=== PATIENT | male | born 1940 | race Caucasian/White ===

== ENCOUNTER → 2023-10-17 10:35 | Outpatient (REF) | payer MEDICARE, BC, SELFPAY | LOC: HWRAD 10:35 | PROVIDERS: ATTENDING PHYSICIAN Internal Medicine Cardiovascular Disease; FAMILY PHYSICIAN Family Medicine | DX: Z79.899 Other long term (current) drug therapy (principal) | CPT/HCPCS: 71046 ==

== ENCOUNTER → 2023-11-05 08:16 | Outpatient (REF) | payer MEDICARE, BC, SELFPAY | LOC: DHCBC/DCA 08:16 | PROVIDERS: ATTENDING PHYSICIAN Internal Medicine Cardiovascular Disease; FAMILY PHYSICIAN Family Medicine | DX: R07.89 Other chest pain (principal); I25.10 Atherosclerotic heart disease of native coronary artery without angina pectoris | CPT/HCPCS: 78452; 93017; A9500; J2785 ==

== ENCOUNTER 2024-02-06 13:19 | Emergency (ER) | payer MEDICARE, BC, SELFPAY ==
[2024-02-06 13:22] VITALS: BP 139/68
--- NOTE | 2024-02-06 13:48 | ED.GENMED ---
History of Present Illness
General
Chief Complaint: Weakness
Source: patient
Time Seen by Provider: 02/06/24 13:37
History of Present Illness
History of Present Illness:
83yoM with a history of coronary artery disease s/p CABG, COPD, hypertension, hyperlipidemia, and gout presenting for evaluation of malaise. Patient started to feel generally unwell about 3 days ago. He had a fever of 101 at that time. No further
fevers but he is having some chills. He also reports a dry cough. He got out of the shower this afternoon about 2 to 3 hours ago and he noticed that he had a rash to the left chest and flank. The rash is not itchy or painful although he does
report a mild pulling sensation in the left side of his chest. He is worried he may have COVID. He denies any shortness of breath.
Past History
Past History
ED Past Medical History: Asthma, CAD, Cancer (Prostate), HTN, Hypercholesterolemia, Psychiatric (Depression) and Other (Kidney stone, peptic ulcer disease, TIA, macular degeneration, glaucoma, BPH, urinary retention, UTIs, obstructive sleep apnea,
Hiatal hernia, Ulcers, Cellulitis, eczema)
ED Past Surgical History: Cardiac (CABG 2016) and Orthopedic (right ankle screws)
Social History
Tobacco: Non-smoker
Alcohol: None
Personal:
Living: alone
Employment: Retired
Family History
Family History: CAD
Phy Exam
General Physical Exam
General Presentation: well appearing and no apparent distress
General age: appears stated age
General Skin: warm and dry
General Habitus: normal
General Mental: alert
Cardiovascular Exam
Cardiovascular Exam: regular rate/rhythm
Pulmonary Exam
Pulmonary Exam: lungs clear, no respiratory distress, no crackles and no wheezing
Gastrointestinal Exam
Gastrointestinal Exam: non tender, soft and non distended
[place] Coma Scale
Eye Opening: Spontaneous
Verbal Response: Oriented
Motor Response: Obeys Commands
GCS Total Score: 15
Skin Exam
Skin Exam: warm/dry and other (Scattered vesicles with patches of erythema along the L side of the chest/flank in the T5 dermatome)
Psychiatric Exam
Psychiatric Exam: normal mood/affect
Course
Orders/Labs/Results
Orders:
Orders
02/06/24 13:28
Electrocardiogram (*1) Urgent
Reason for Study: Chest Pain
EKG- Treatment ONCE
02/06/24 13:48
CR Chest - 2 Views Urgent
Comment:
Reason For Exam: Cough
02/06/24 13:54
COVID-19 Antigen Urgent
Source: Nasal Swab
Complete Blood Count/With Diff Urgent
Comprehensive Metabolic Panel Urgent
Troponin I Urgent
Influenza A+B Rapid Molecular Urgent
MARIA DEL CARMEN Source: Nasal Swab
Specimen Description:
Abnormal Lab Results
02/06/24
13:54
Absolute Neuts (auto) 6.9 H 10^3/uL
(1.4-6.5)
Absolute Lymphs (auto) 0.9 L 10^3/uL
(1.2-3.4)
Neutrophils % 82.6 H %
(42.2-75.2)
Lymphocytes % 10.2 L %
(20.5-51.1)
Glucose 104 H mg/dl
(70-99)
Total Bilirubin 1.7 H mg/dl
(0.2-1.3)
02/06/24 13:54
02/06/24 13:54
Vital Signs
Initial and Last Documented VS:
Initial Vital Signs
Temp Pulse Resp BP Pulse Ox
98.1 F 91 18 139/68 97
02/06/24 13:22 02/06/24 13:22 02/06/24 13:22 02/06/24 13:22 02/06/24 13:22
Last Documented Vital Signs
Temp Pulse Resp BP Pulse Ox
98.1 F 83 17 139/68 93
02/06/24 13:22 02/06/24 15:45 02/06/24 15:45 02/06/24 13:22 02/06/24 15:30
MDM/Problems Addressed
Differential Diagnosis Includes:
83yoM here with malaise and fatigue x 3 days. +Chills. He noticed a rash to the L chest/flank this afternoon. He is afebrile and hemodynamically stable. He is well appearing in no distress. There is a vesicular erythematous rash along a dermatomal
pattern on exam consistent with herpes zoster. Remainder of exam is reassuring. Differential diagnosis includes but is not limited to: shingles, viral illness, pneumonia, ACS
Initial ED plan: Check cardiac labs, EKG, COVID/flu swab, and CXR.
*EKG
Interpreted by ED Provider?: Yes
EKG Intrepretation Date: 02/06/24
Heart Rate: 83
Rate: normal
Rhythm: sinus and PAC's
Mack: normal axis
Interval: normal interval
QRS Pattern: normal QRS
Ischemia: no ischemia
*Critical Care Note
Total Time (30-74mins, 75-104mins- exclusive of procedures): Not Applicable
Update Note
Update Note:
Labs overall unremarkable other than bilirubin of 1.7. Remainder of LFTs are normal. COVID/flu testing negative. EKG shows normal sinus rhythm without ischemic changes and troponin within normal limits. Chest x-ray clear without infiltrates. No
indication for hospitalization at this time. Suspect symptoms are related to herpes zoster infection. He was started on a course of Valtrex. Supportive care discussed including keeping rash covered until completely scabbed over. Advised
follow-up with PCP and ED return precautions discussed. Patient expressed understanding and is agreeable to plan. He was discharged stable condition.
ED Attending Note
-
Portions of this chart may have been created with voice recognition software.� Occasional wrong word or��sound alike� substitutions may have occurred due to the inherent limitations of voice recognition software.
Discharge Plan
Departure
Patient Disposition: Home (Routine Discharge)
Date of Disposition: 02/06/24
Time of Disposition: 15:45
Patient with high blood pressure during this ER visit?: No
Discharge Problem:
Herpes zoster
Instructions: Shingles
Prescriptions:
New
valacyclovir [Valtrex] 1 gram tablet
1,000 mg PO Q8H 10 Days Qty: 30 0RF
No Action
allopurinol 300 MG tablet
300 mg PO DAILY
amiodarone [Pacerone] 200 MG tablet
200 mg PO DAILY
albuterol sulfate 1 PUFF HFA aerosol inhaler
2 puff inhalation R Q4HPRN PRN (Reason: sob)
Fasenra 30 MG/ML syringe
30 mg SC .[id number]
terazosin 1 MG capsule
4 mg PO HS
amlodipine 10 MG tablet
10 mg PO DAILY
gabapentin 300 MG capsule
300 mg PO BID
montelukast 10 MG tablet
10 mg PO QPM
fluticasone propionate 1 SPRAY spray,suspension
1 spray intranasal DAILYPRN PRN (Reason: nasal congestion)
rosuvastatin [Crestor] 40 MG tablet
40 mg PO DAILY
esomeprazole magnesium [address] for susp in packet
40 mg PO DAILY
aspirin 81 MG tablet,chewable
81 mg PO DAILY
furosemide 20 MG tablet
20 mg PO DAILY
gabapentin 100 MG capsule
200 mg PO DAILY@1400
loratadine 10 MG tablet
10 mg PO DAILY
ezetimibe 10 MG tablet
10 mg PO DAILY
multivitamin with folic acid [Tab-A-Lorraine] 1 TABLET tablet
1 tab PO DAILY
fluticasone propion-salmeterol [Wixela Inhub] 250-50 mcg/dose blister with device
1 inh INHALATION BID
Activity Restrictions/Additional Instructions:
Take Valtrex (antiviral) as prescribed. Keep rash covered until completely scabbed over.
Please follow-up with your family doctor next week. Return to the ER with any new or worsening symptoms.
Interventions
Interventions:
*Risk Screen - Suicide Last Done: 02/06/24 13:21
*General Assessment Last Done: 02/06/24 13:22
*Neglect/Abuse Screening Last Done: 02/06/24 13:22
ED- Fall Risk Assessment Last Done: 02/06/24 13:52
*ED COVID-19 Vaccine History Last Done: 02/06/24 13:51
*Nursing Disposition Last Done: 02/06/24 16:01
ED- Cardiac Assessment Last Done: 02/06/24 14:14
ED- Neurological Assessment Last Done: 02/06/24 14:14
ED- Pulmonary Assessment Last Done: 02/06/24 14:14
Discharge Date and Time
Discharge Date/Time: 02/06/24 16:01
Print Language: HONG KONGER
[2024-02-06 13:51] VITALS: BMI 28.5
[2024-02-06 14:07] LABS: % Immature Granulocytes 0.4 % (0-0.5); % Lymphocytes 10.2 % (20.5-51.1); % Monocytes 6.8 % (1.7-9.3); % Neutrophils 82.6 % (42.2-75.2); Absolute Lymphocytes 0.9 10^3/uL (1.2-3.4); Absolute Monocytes 0.6 10^3/uL (0.1-0.6); Absolute Neutrophils 6.9 10^3/uL (1.4-6.5); Hematocrit 41.3 % (39.0-52.0); Hemoglobin 14.3 g/dL (13.0-18.0); Mean Corp Hgb Conc. 34.6 g/dL (33.0-37.0); Mean Corpuscular Hgb 30.4 pg (27.0-31.0); Mean Corpuscular Volume 87.7 fL (80.0-94.0); Nucleated Red Blood Cells % 0 % (-); Platelet Count 187 10^3/uL (130-400); Red Blood Cell Count 4.71 10^6/uL (4.70-6.10); Red Cell Dist. Width 14.1 % (11.5-14.5); White Blood Cell Count 8.4 10^3/uL (4.8-10.8)
[2024-02-06 14:20] LABS: COVID-19 Antigen Negative (Negative)
[2024-02-06 14:24] LABS: ALT (SGPT) 42 U/L (0-50); AST (SGOT) 56 U/L (17-59); Albumin 3.9 g/dl (3.5-5.0); Alkaline Phosphatase 110 U/L (38-126); Blood Urea Nitrogen 17 mg/dl (9-20); Calcium 9.5 mg/dl (8.4-10.2); Carbon Dioxide 23 mmol/L (22-30); Chloride 101 mmol/L (98-107); Estimated Creatinine Clearance 52 ml/min; Glucose 104 mg/dl (70-99); Potassium 3.8 mmol/L (3.5-5.1); Sodium 136 mmol/L (135-145); Total Bilirubin 1.7 mg/dl (0.2-1.3); Total Protein 6.4 g/dl (6.3-8.2); eGFR > 60.00
[2024-02-06 14:36] LABS: Troponin I < 0.012 ng/ml
== END 2024-02-06 16:01 | disposition home or self-care (01) ==
LOC: EMR 13:19
PROVIDERS: Physician Assistant; EMERGENCY PHYSICIAN Emergency Medicine; FAMILY PHYSICIAN Family Medicine
DX: R53.81 Other malaise (principal); I25.10 Atherosclerotic heart disease of native coronary artery without angina pectoris; J44.89 Other specified chronic obstructive pulmonary disease; I10 Essential (primary) hypertension; E78.00 Pure hypercholesterolemia, unspecified; G47.33 Obstructive sleep apnea (adult) (pediatric); B02.9 Zoster without complications; Z82.49 Family history of ischemic heart disease and other diseases of the circulatory system; Z86.73 Personal history of transient ischemic attack (TIA), and cerebral infarction without residual deficits; Z87.11 Personal history of peptic ulcer disease; Z87.440 Personal history of urinary (tract) infections; Z87.442 Personal history of urinary calculi; Z95.1 Presence of aortocoronary bypass graft
CPT/HCPCS: 99283; 71046; 80053; 84484; 85025; 87502; 87811; 93005

== ENCOUNTER → 2024-05-05 10:23 | Outpatient (REF) | payer MEDICARE, BC, SELFPAY | LOC: HWRCS 10:23 | PROVIDERS: ATTENDING PHYSICIAN Internal Medicine Cardiovascular Disease; FAMILY PHYSICIAN Family Medicine | DX: I25.10 Atherosclerotic heart disease of native coronary artery without angina pectoris (principal) | CPT/HCPCS: 93306 ==

== ENCOUNTER → 2024-05-18 08:47 | Day surgery (SDC) | payer MEDICARE, BC, SELFPAY ==
[2024-05-18 11:30] LABS: Hematocrit 39.9 % (39.0-52.0); Hemoglobin 12.7 g/dL (13.0-18.0); Mean Corp Hgb Conc. 31.8 g/dL (33.0-37.0); Mean Corpuscular Hgb 29.8 pg (27.0-31.0); Mean Corpuscular Volume 93.7 fL (80.0-94.0); Mean Platelet Volume 8.6 fL (7.4-10.4); Platelet Count 308 10^3/uL (130-400); Red Blood Cell Count 4.26 10^6/uL (4.70-6.10); Red Cell Dist. Width 14.7 % (11.5-14.5); White Blood Cell Count 13.1 10^3/uL (4.8-10.8)
[2024-05-18 11:51] LABS: Blood Urea Nitrogen 21 mg/dl (9-20); Calcium 9.2 mg/dl (8.4-10.2); Carbon Dioxide 28 mmol/L (22-30); Chloride 101 mmol/L (98-107); Glucose 77 mg/dl (70-99); Potassium 3.1 mmol/L (3.5-5.1); Sodium 137 mmol/L (135-145); eGFR > 60.00
== END ==
LOC: SDSPAT 08:47
PROVIDERS: ATTENDING PHYSICIAN Specialist; FAMILY PHYSICIAN Family Medicine; OTHER PHYSICIAN Internal Medicine Cardiovascular Disease
DX: Z01.812 Encounter for preprocedural laboratory examination (principal)
CPT/HCPCS: 85027; 36415; 80048

== ENCOUNTER 2024-06-01 06:23 | Day surgery (SDC) | payer MEDICARE, BC, SELFPAY ==
[2024-05-18 11:02] VITALS: BMI 28.8
--- NOTE | 2024-05-24 13:38 | PTCARENOTE ---
Chaka+ 3.1 collected on 05/18/24; Haydee at ' office was notified.
--- NOTE | 2024-05-27 16:50 | PTCARENOTE ---
[facility] lab K+ 3.1, Dr. Ferreira notified, no requests/orders received.
[2024-06-01 10:33] VITALS: BMI 28.8
[2024-06-01 10:35] VITALS: BP 131/57
[2024-06-01] MEDS: NORMOSOL-R/PLASMALYTE-A 1000 IV (10:51)
[2024-06-01] MEDS: Pyridium 200 MG PO (10:51)
[2024-06-01 12:29] VITALS: BP 116/52; BP 131/57
[2024-06-01 12:45] VITALS: BP 104/52
[2024-06-01 13:00] VITALS: BP 109/50
[2024-06-01 13:26] VITALS: BP 108/52
[2024-06-01 13:42] VITALS: BP 111/50
[2024-06-03 08:26] LABS: Stone Analysis Mass 16 mg
== END 2024-06-01 14:00 | disposition home or self-care (01) ==
LOC: SDS 06:23
PROVIDERS: ATTENDING PHYSICIAN Specialist; FAMILY PHYSICIAN Family Medicine
DX: N20.2 Calculus of kidney with calculus of ureter (principal); Z87.440 Personal history of urinary (tract) infections
CPT/HCPCS: 52356; 74018; 76000; 82365; C1894; C2617

== ENCOUNTER → 2024-07-20 14:09 | Outpatient (REF) | payer MEDICARE, BC, SELFPAY | LOC: HWRAD 14:09 | PROVIDERS: ATTENDING PHYSICIAN Specialist; FAMILY PHYSICIAN Family Medicine | DX: Z87.442 Personal history of urinary calculi (principal) | CPT/HCPCS: 74018 ==

== ENCOUNTER → 2024-09-06 12:26 | Outpatient (REF) | payer MEDICARE, BC, SELFPAY | LOC: WOUND 12:26 | PROVIDERS: ATTENDING PHYSICIAN Surgery | DX: L97.322 Non-pressure chronic ulcer of left ankle with fat layer exposed (principal); I25.10 Atherosclerotic heart disease of native coronary artery without angina pectoris | CPT/HCPCS: 11042; 99203 ==

== ENCOUNTER → 2024-09-14 10:04 | Outpatient (REF) | payer MEDICARE, BC, SELFPAY | LOC: WOUND 10:04 | PROVIDERS: ATTENDING PHYSICIAN Surgery | DX: L97.222 Non-pressure chronic ulcer of left calf with fat layer exposed (principal); I25.10 Atherosclerotic heart disease of native coronary artery without angina pectoris | CPT/HCPCS: 11042 ==

== ENCOUNTER → 2024-09-21 09:11 | Outpatient (REF) | payer MEDICARE, BC, SELFPAY | LOC: WOUND 09:11 | PROVIDERS: ATTENDING PHYSICIAN Surgery; FAMILY PHYSICIAN Family Medicine | DX: L97.222 Non-pressure chronic ulcer of left calf with fat layer exposed (principal); I25.10 Atherosclerotic heart disease of native coronary artery without angina pectoris | CPT/HCPCS: 11042 ==

== ENCOUNTER → 2024-10-01 09:08 | Outpatient (REF) | payer MEDICARE, BC, SELFPAY | LOC: WOUND 09:08 | PROVIDERS: ATTENDING PHYSICIAN Surgery; FAMILY PHYSICIAN Family Medicine | DX: L97.222 Non-pressure chronic ulcer of left calf with fat layer exposed (principal); I25.10 Atherosclerotic heart disease of native coronary artery without angina pectoris | CPT/HCPCS: 97597 ==

== ENCOUNTER → 2024-10-08 09:10 | Outpatient (REF) | payer MEDICARE, BC, SELFPAY | LOC: WOUND 09:10 | PROVIDERS: ATTENDING PHYSICIAN Surgery; FAMILY PHYSICIAN Family Medicine | DX: L97.222 Non-pressure chronic ulcer of left calf with fat layer exposed (principal); I25.10 Atherosclerotic heart disease of native coronary artery without angina pectoris | CPT/HCPCS: 11042 ==

== ENCOUNTER → 2024-10-21 09:48 | Outpatient (REF) | payer MEDICARE, BC, SELFPAY | LOC: WOUND 09:48 | PROVIDERS: ATTENDING PHYSICIAN Surgery; FAMILY PHYSICIAN Family Medicine | DX: L97.222 Non-pressure chronic ulcer of left calf with fat layer exposed (principal); I25.10 Atherosclerotic heart disease of native coronary artery without angina pectoris | CPT/HCPCS: 99212 ==

== ENCOUNTER 2024-11-04 17:36 | Emergency (ER) | payer MEDICARE, BC, SELFPAY ==
[2024-11-04] VITALS (7 sets, daily range): BP systolic 119–138; BP diastolic 65–80; BMI 28.3
--- NOTE | 2024-11-04 18:18 | ED.GENMED ---
History of Present Illness
General
Chief Complaint: Blood Pressure Problem
Time Seen by Provider: 11/04/24 18:15
History of Present Illness
History of Present Illness:
84-year-old male presents the emergency department for evaluation of intermittent chest pain that has been ongoing for the past month. He reports symptoms are purely provoked by exertion in association with mild shortness of breath. He has no pain
at present. States that he typically has symptom resolution within 20 minutes of resting. Prior history of CABG x 3 but notes that he had no angina symptoms leading up to his CABG
Past History
Past History
ED Past Medical History: Asthma, CAD, Cancer (Prostate), HTN, Hypercholesterolemia, Psychiatric (Depression) and Other (Kidney stone, peptic ulcer disease, TIA, macular degeneration, glaucoma, BPH, urinary retention, UTIs, obstructive sleep apnea,
Hiatal hernia, Ulcers, Cellulitis, eczema)
ED Past Surgical History: Cardiac (CABG 2016) and Orthopedic (right ankle screws)
Social History
Tobacco: Non-smoker
Alcohol: None
Personal:
Living: alone
Employment: Retired
Family History
Family History: CAD
Review of Systems
Review of Systems
Allergies reviewed?: Yes
All Other Systems: ROS reviewed and negative except as documented in HPI and ROS
Phy Exam
Physical Exam
Physical Exam:
GEN: Well appearing, NAD, WDWN
HEENT: Oral mucosa moist, no scleral icterus
Cardiac: Regular rate and rhythm blowing systolic murmur heard throughout
Lung: No respiratory distress, no tachypnea, clear
MSK: No gross deformity or injuries
Skin: Good color, no pallor or jaundice, no rashes
Neuro: AO x3, moves all extremities freely
Psych: Calm, cooperative
Scores
Heart Score for Chest Pain Patients
STEMI patient?: No
History: Highly Suspicious
ECG: Normal
Age: >/= 65 years
Risk Factors: >/= 3 Risk Factors or History of CAD
Troponin: </= Normal Limit
Heart Score for Chest Pain Patients: 6
Heart Score Risk: 20.3% MACE over next 6 weeks
Course
Orders/Labs/Results
Orders:
Orders
11/04/24 17:42
ECG [Electrocardiogram (*1)] Urgent
Reason for Study: Chest Pain
11/04/24 17:43
EKG- Treatment ONCE
11/04/24 18:51
CR Chest - 2 Views Urgent
Comment:
Reason For Exam: chest pain
11/04/24 18:56
Complete Blood Count/With Diff Urgent
Comprehensive Metabolic Panel Urgent
NT-proBNP Urgent
Troponin I Urgent
11/04/24 20:39
EKG- Treatment ONCE
11/04/24 20:53
Troponin I Urgent
11/04/24 21:00
Electrocardiogram (*1) Urgent
Reason for Study: Chest Pain
Abnormal Lab Results
11/04/24
18:56
RBC 4.47 L 10^6/uL
(4.70-6.10)
Absolute Neuts (auto) 8.0 H 10^3/uL
(1.4-6.5)
Absolute Lymphs (auto) 1.1 L 10^3/uL
(1.2-3.4)
Absolute Monos (auto) 0.9 H 10^3/uL
(0.1-0.6)
Neutrophils % 79.3 H %
(42.2-75.2)
Lymphocytes % 11.2 L %
(20.5-51.1)
Total Bilirubin 1.6 H mg/dl
(0.2-1.3)
11/04/24 18:56
11/04/24 18:56
Vital Signs
Initial and Last Documented VS:
Initial Vital Signs
Temp Pulse Resp BP Pulse Ox
98.8 F 78 18 119/66 96
11/04/24 17:37 11/04/24 17:37 11/04/24 17:37 11/04/24 17:37 11/04/24 17:37
Last Documented Vital Signs
Temp Pulse Resp BP Pulse Ox
98.8 F 71 18 134/80 95
11/04/24 17:37 11/04/24 22:00 11/04/24 22:00 11/04/24 22:00 11/04/24 22:00
MDM/Problems Addressed
MDM/Problems Addressed:
84-year-old male with prior history of CABG presenting with exertional chest pain, no pain at rest. His initial EKG is nonischemic initial troponin is nonnegative thus he was observed in the ED with delta troponin downtrending. He remained
pain-free in the ED. Given his significant cardiovascular risk and prior history I did advise that admission to the hospital for further ischemic workup would be recommended however the patient declines at this time I communicated this with his
lubricator granulator who will arrange for close outpatient follow-up
Comment
Comment:
EKG independently interpreted by me shows a normal sinus rhythm with no ischemic changes
*Pulse Oximetry
Patient hypoxic: no
Comment: 95%
*Critical Care Note
Total Time (30-74mins, 75-104mins- exclusive of procedures): Not Applicable
ED Attending Note
-
Portions of this chart may have been created with voice recognition software.� Occasional wrong word or��sound alike� substitutions may have occurred due to the inherent limitations of voice recognition software.
Discharge Plan
Departure
Patient Disposition: Home (Routine Discharge)
Date of Disposition: 11/04/24
Time of Disposition: 21:47
Patient with high blood pressure during this ER visit?: No
Discharge Problem:
Stable angina
Instructions: Chest Pain DCA Follow Up
Prescriptions:
No Action
allopurinol 300 MG tablet
300 mg PO DAILY
amiodarone [Pacerone] 200 MG tablet
200 mg PO DAILY
albuterol sulfate 1 PUFF HFA aerosol inhaler
2 puff inhalation R Q4HPRN PRN (Reason: sob)
Fasenra 30 MG/ML syringe
30 mg SC .[id number]
amlodipine 10 MG tablet
10 mg PO DAILY
gabapentin 300 MG capsule
300 mg PO BID
montelukast 10 MG tablet
10 mg PO QPM
rosuvastatin [Crestor] 40 MG tablet
40 mg PO HS
esomeprazole magnesium [address] for susp in packet
40 mg PO DAILY
furosemide 20 MG tablet
20 mg PO DAILY
loratadine 10 MG tablet
10 mg PO DAILY
ezetimibe 10 MG tablet
10 mg PO HS
multivitamin with folic acid [Tab-A-Lorraine] 1 TABLET tablet
1 tab PO DAILY
prednisone 10 mg Tablet
10 mg PO DAILY
terazosin 2 mg Capsule
2 mg PO HS
cefdinir 300 mg Capsule
300 mg PO Q12H
fluticasone propionate 50 mcg/actuation [place],Suspension
1 spray INTRANASAL BID
Fish Oil 500 mg Capsule
500 mg PO HS
azelastine-fluticasone 137-50 mcg/spray [place],Non-Aerosol
1 spray INTRANASAL BID
potassium chloride [K-Tab] 20 mEq Tablet Extended Release
20 meq PO DAILY
Probiotic
1 cap PO DAILY
cranberry 300 mg capsule
1 cap PO HS
acetaminophen [Tylenol Arthritis] 650 mg Tablet Extended Release
1,300 mg PO Q12H
fluticasone propion-salmeterol [Advair Diskus] 500-50 mcg/dose Blister With Device
2 inh INHALATION BID
Referrals:
Stepan Dunbar DO [Family Provider, Family Practice]
Interventions
Interventions:
*Risk Screen - Suicide Last Done: 11/04/24 17:37
*General Assessment Last Done: 11/04/24 17:37
*Neglect/Abuse Screening Last Done: 11/04/24 18:42
*ED- Fall Risk Assessment Last Done: 11/04/24 18:41
*ED COVID-19 Vaccine History Last Done: 11/04/24 18:41
*Nursing Disposition Last Done: 11/04/24 22:00
ED- Cardiac Assessment Last Done: 11/04/24 19:09
ED- Neurological Assessment Last Done: 11/04/24 18:46
ED- Pulmonary Assessment Last Done: 11/04/24 19:09
Discharge Date and Time
Discharge Date/Time: 11/04/24 22:07
Print Language: MICRONESIAN
[2024-11-04 19:12] LABS: % Basophils 0.1 % (0-2); % Immature Granulocytes 0.2 % (0-0.5); % Lymphocytes 11.2 % (20.5-51.1); % Monocytes 9.2 % (1.7-9.3); % Neutrophils 79.3 % (42.2-75.2); Absolute Lymphocytes 1.1 10^3/uL (1.2-3.4); Absolute Monocytes 0.9 10^3/uL (0.1-0.6); Hematocrit 39.9 % (39.0-52.0); Hemoglobin 13.7 g/dL (13.0-18.0); Mean Corp Hgb Conc. 34.3 g/dL (33.0-37.0); Mean Corpuscular Hgb 30.6 pg (27.0-31.0); Mean Corpuscular Volume 89.3 fL (80.0-94.0); Mean Platelet Volume 8.6 fL (7.4-10.4); Nucleated Red Blood Cells % 0 % (-); Platelet Count 241 10^3/uL (130-400); Red Blood Cell Count 4.47 10^6/uL (4.70-6.10); Red Cell Dist. Width 14.3 % (11.5-14.5); White Blood Cell Count 10.1 10^3/uL (4.8-10.8)
[2024-11-04 19:33] LABS: ALT (SGPT) 25 U/L (0-50); AST (SGOT) 32 U/L (17-59); Albumin 4.4 g/dl (3.5-5.0); Alkaline Phosphatase 104 U/L (38-126); Blood Urea Nitrogen 19 mg/dl (9-20); Calcium 9.8 mg/dl (8.4-10.2); Carbon Dioxide 24 mmol/L (22-30); Chloride 107 mmol/L (98-107); Estimated Creatinine Clearance 43 ml/min; Glucose 92 mg/dl (70-99); Potassium 4.4 mmol/L (3.5-5.1); Sodium 140 mmol/L (135-145); Total Bilirubin 1.6 mg/dl (0.2-1.3); Total Protein 6.7 g/dl (6.3-8.2); eGFR > 60.00
[2024-11-04 19:51] LABS: NT-proBNP 131 pg/ml; Troponin I 0.023 ng/ml
[2024-11-04 21:38] LABS: Troponin I 0.013 ng/ml
== END 2024-11-04 22:07 | disposition home or self-care (01) ==
LOC: EMR 17:36
PROVIDERS: Physician Assistant; EMERGENCY PHYSICIAN Student in an Organized Health Care Education/Training Program; FAMILY PHYSICIAN Family Medicine
DX: I25.118 Atherosclerotic heart disease of native coronary artery with other forms of angina pectoris (principal); I11.9 Hypertensive heart disease without heart failure
CPT/HCPCS: 99285; 71046; 80053; 83880; 84484; 85025; 93005

== ENCOUNTER 2025-03-29 10:32 | Emergency (ER) | payer MEDICARE, BC, SELFPAY ==
[2025-03-29 10:38] VITALS: BP 136/55
--- NOTE | 2025-03-29 11:25 | ED.MUSCINJ ---
HPI-Injury
General
Chief Complaint: Fall
Source: patient
Exam Limitations: none
Time Seen by Provider: 03/29/25 11:25
Nursing documentation reviewed up to this point in time: agreed with
History of Present Illness-Injury
Initial Injury comments:
84-year-old male with history of HTN, HLD, CABG, GERD, BPH, sternectomy after infection post op CABG, chest wall muscle flap repair 05/2016, presents from home after missed a step and tripped and fell in his driveway yesterday landing on all fours,
here with pain and scrapes both knees, pain, swelling and ecchymosis left hand and wrist, abrasion and mild pain right wrist, and right chest wall pain. He was able to get up independently but since the fall, both knees hurt and couldn't go up
stairs last p.m. due to knee pain so slept on sofa. Denies neck, back, abd pain. Denies SOB. Denies hitting his head.
Past History
Past History
ED Past Medical History: Asthma, CAD, Cancer (Prostate), HTN, Hypercholesterolemia, Psychiatric (Depression) and Other (Kidney stone, peptic ulcer disease, TIA, macular degeneration, glaucoma, BPH, urinary retention, UTIs, obstructive sleep apnea,
Hiatal hernia, Ulcers, Cellulitis, eczema)
ED Past Surgical History: Cardiac (CABG 2016) and Orthopedic (right ankle screws)
Social History
Tobacco: Non-smoker
Alcohol: None
Personal:
Living: alone
Employment: Retired
Family History
Family History: CAD
Review of Systems
Review of Systems
Allergies reviewed?: Yes
All Other Systems: ROS reviewed and negative except as documented in HPI and ROS
Phy Exam
Physical Exam
Physical Exam:
GENERAL: No acute distress. A&Ox3.
CONSTITUTIONAL: Afebrile.
EYES: clear, conjunctivae normal
ENMT: moist mucus membranes, Pharynx nl
RESPIRATORY: Regular respirations, nonlabored, lungs clear.
CARDIOVASCULAR: Regular rate and rhythm, no murmurs, no rubs.
GI: Soft, nontender, normal BS
MUSCULOSKELETAL: No spinal bony tenderness. Right upper chest wall pectoral area tender to palpate, no discoloration or swelling here. Right upper extremity with mild tenderness about the wrist at the site of an abrasion, full range of motion,
distal neurovascular intact. Left upper extremity: Ecchymotic, mildly swollen from wrist to mid fingers, mainly tender along the lateral aspect of the hand. Wrist is nontender with full range of motion. Distal neurovascular intact. Full range of
motion of fingers. Both knees are tender to palpate, no significant swelling, multiple superficial clean abrasions and ecchymotic areas. Full range of motion. Distal neurovascular intact. Moves with ease. Well perfused.
SKIN: Warm, dry, pink
PSYCH: Normal mood and affect. Well kept, interactive and appropriate
NEUROLOGIC: Awake, alert and oriented. No focal neurological deficits
Injury Course
Orders/Labs/Results
Orders:
Orders
03/29/25 10:44
CR Hand - Right Min 3 Views Urgent
Comment:
Reason For Exam: fall
CR Knee- Right 4 Or More View* Urgent
Comment:
Reason For Exam: fall
Hand, Left 3 View [CR Hand - Left Min 3 Views] Urgent
Comment:
Reason For Exam: fall
Knee, Left 4 or More Views [CR Knee - Left 4 Or More View*] Urgent
Comment:
Reason For Exam: fall
Ribs, Right 3 View W/PA Chest [CR Ribs-right 3 Vw W/pa Chest*] Urgent
Comment:
Reason For Exam: fall
MDM/Problems Addressed
Differential Diagnosis Includes:
Contusions versus fractures
MDM/Problems Addressed:
84-year-old male with history of HTN, HLD, CABG, GERD, BPH, sternectomy after infection post op CABG, chest wall muscle flap repair 05/2016, not anticoagulated, presents from home after missed a step and tripped and fell in his driveway yesterday
landing on all fours, here with pain and scrapes both knees, pain, swelling and ecchymosis left hand and wrist, abrasion and mild pain right wrist, and right chest wall pain. He was able to get up independently but since the fall, both knees hurt
and couldn't go up stairs last p.m. due to knee pain so slept on sofa. Denies neck, back, abd pain. Denies SOB. Denies hitting his head.
X-rays both hands initially read by this examiner: No acute bony abnormality noted.
X-ray of both knees initially read by this examiner, no acute bony abnormality noted.
X-ray of right ribs with chest radiology report reviewed: No evidence for acute right rib fracture no evidence for pneumothorax or pleural effusion.
Patient out of bed and ambulating well, stable for discharge.
*Pulse Oximetry
SaO2: 94
Oxygen Mode of Delivery: Room air
Patient hypoxic: not evaluated
*Critical Care Note
Total Time (30-74mins, 75-104mins- exclusive of procedures): Not Applicable
ED Attending Note
-
Portions of this chart may have been created with voice recognition software.� Occasional wrong word or��sound alike� substitutions may have occurred due to the inherent limitations of voice recognition software.
Discharge Plan
Departure
Patient Disposition: Home (Routine Discharge)
Date of Disposition: 03/29/25
Time of Disposition: 11:48
Patient with high blood pressure during this ER visit?: No
Condition: Good
Discharge Problem:
Fall from slip, trip, or stumble, Contusion of left hand, Multiple abrasions, Muscle strain of chest wall, Contusion both knees
Instructions: Contusion (DC), Skin Abrasions (DC), Muscle, joint, and bone pain (DC)
Prescriptions:
No Action
allopurinol 300 MG tablet
300 mg PO DAILY
amiodarone [Pacerone] 200 MG tablet
200 mg PO DAILY
albuterol sulfate 1 PUFF HFA aerosol inhaler
2 puff inhalation R Q4HPRN PRN (Reason: sob)
Fasenra 30 MG/ML syringe
30 mg SC .[id number]
amlodipine 10 MG tablet
10 mg PO DAILY
gabapentin 300 MG capsule
300 mg PO BID
montelukast 10 MG tablet
10 mg PO QPM
rosuvastatin [Crestor] 40 MG tablet
40 mg PO HS
esomeprazole magnesium [address] for susp in packet
40 mg PO DAILY
furosemide 20 MG tablet
20 mg PO DAILY
loratadine 10 MG tablet
10 mg PO DAILY
ezetimibe 10 MG tablet
10 mg PO HS
multivitamin with folic acid [Tab-A-Lorraine] 1 TABLET tablet
1 tab PO DAILY
prednisone 10 mg Tablet
10 mg PO DAILY
terazosin 2 mg Capsule
2 mg PO HS
cefdinir 300 mg Capsule
300 mg PO Q12H
fluticasone propionate 50 mcg/actuation [place],Suspension
1 spray INTRANASAL BID
Fish Oil 500 mg Capsule
500 mg PO HS
azelastine-fluticasone 137-50 mcg/spray [place],Non-Aerosol
1 spray INTRANASAL BID
potassium chloride [K-Tab] 20 mEq Tablet Extended Release
20 meq PO DAILY
Probiotic
1 cap PO DAILY
cranberry 300 mg capsule
1 cap PO HS
acetaminophen [Tylenol Arthritis] 650 mg Tablet Extended Release
1,300 mg PO Q12H
fluticasone propion-salmeterol [Advair Diskus] 500-50 mcg/dose Blister With Device
2 inh INHALATION BID
Referrals:
Justo Powell MD [Active, Orthopedics] - As needed
Stepan Dunbar DO [Family Provider, Family Practice] - As needed
Jacob Koenig MD [Active, Orthopedics] - As needed
Activity Restrictions/Additional Instructions:
As we discussed, your x-rays show nothing is broken or out of place.
Tylenol as needed for mild to moderate pain and you can use your oxycodone if needed for worse pain.
It is not unusual to be more stiff and sore for the 3 days after a fall or an accident.
You may use cold compresses today and tomorrow to the knees, the left wrist and to the right chest wall for 20 minutes off-and-on, then warm moist compresses or heating pad.
Interventions
Interventions:
*Risk Screen - Suicide Last Done: 03/29/25 10:38
*Neglect/Abuse Screening Last Done: 03/29/25 10:38
*Nursing Disposition Last Done: 03/29/25 12:02
ED-Musculoskeletal Assessment Last Done: 03/29/25 11:28
ED- Neurological Assessment Last Done: 03/29/25 11:28
ED-Skin Assessment Last Done: 03/29/25 11:28
Discharge Date and Time
Discharge Date/Time: 03/29/25 12:02
Print Language: WELSH
== END 2025-03-29 12:02 | disposition home or self-care (01) ==
LOC: EMR 10:32
PROVIDERS: EMERGENCY PHYSICIAN Emergency Medicine; FAMILY PHYSICIAN Family Medicine
DX: S60.222A Contusion of left hand, initial encounter (principal); S60.811A Abrasion of right wrist, initial encounter; S80.212A Abrasion, left knee, initial encounter; S80.211A Abrasion, right knee, initial encounter; S29.011A Strain of muscle and tendon of front wall of thorax, initial encounter; S80.02XA Contusion of left knee, initial encounter; S80.01XA Contusion of right knee, initial encounter; W01.0XXA Fall on same level from slipping, tripping and stumbling without subsequent striking against object, initial encounter; Y92.008 Other place in unspecified non-institutional (private) residence as the place of occurrence of the external cause; I25.810 Atherosclerosis of coronary artery bypass graft(s) without angina pectoris; I10 Essential (primary) hypertension; E78.00 Pure hypercholesterolemia, unspecified; G47.33 Obstructive sleep apnea (adult) (pediatric); J45.909 Unspecified asthma, uncomplicated; H40.9 Unspecified glaucoma; H35.30 Unspecified macular degeneration; F32.A Depression, unspecified; K21.9 Gastro-esophageal reflux disease without esophagitis; K44.9 Diaphragmatic hernia without obstruction or gangrene; N40.1 Benign prostatic hyperplasia with lower urinary tract symptoms; R33.8 Other retention of urine; Z95.1 Presence of aortocoronary bypass graft; Z86.73 Personal history of transient ischemic attack (TIA), and cerebral infarction without residual deficits; Z85.46 Personal history of malignant neoplasm of prostate; Z82.49 Family history of ischemic heart disease and other diseases of the circulatory system
CPT/HCPCS: 99283; 71101; 73130; 73564

== ENCOUNTER → 2025-05-02 09:15 | Outpatient (REF) | payer MEDICARE, BC, SELFPAY | LOC: HWRCS 09:15 | PROVIDERS: ATTENDING PHYSICIAN Internal Medicine Cardiovascular Disease; FAMILY PHYSICIAN Family Medicine | DX: I35.0 Nonrheumatic aortic (valve) stenosis (principal) | CPT/HCPCS: 93306 ==

== ENCOUNTER 2025-05-21 10:47 | Emergency (ER) | payer MEDICARE, BC, SELFPAY ==
[2025-05-21 10:53] VITALS: BP 134/57
--- NOTE | 2025-05-21 11:31 | ED.GENMED ---
History of Present Illness
General
Chief Complaint: Chest Pain
Source: patient and spouse
Exam Limitations: none
Time Seen by Provider: 05/21/25 11:07
Nursing documentation reviewed up to this point in time: agreed with
History of Present Illness
History of Present Illness:
Patient is a 84-year-old male with past medical history of CABG, hypertension hyperlipidemia infected sternum with sternectomy in 2016 presents to the ER for evaluation of left rib pain. 4 days ago patient reports he was lifting a posting rail
fence and felt pain in his left rib however last night he heard and felt a snap in his left rib area. He complains of pain to the left lateral rib area worse with movement coughing or deep breaths. He denies any shortness of breath denies any
abdominal pain.
Past History
Past History
ED Past Medical History: Asthma, CAD, Cancer (Prostate), HTN, Hypercholesterolemia, Psychiatric (Depression) and Other (Kidney stone, peptic ulcer disease, TIA, macular degeneration, glaucoma, BPH, urinary retention, UTIs, obstructive sleep apnea,
Hiatal hernia, Ulcers, Cellulitis, eczema)
ED Past Surgical History: Cardiac (CABG 2016) and Orthopedic (right ankle screws)
Social History
Tobacco: Non-smoker
Alcohol: None
Personal:
Living: alone
Employment: Retired
Family History
Family History: CAD
Phy Exam
General Physical Exam
General Presentation: no apparent distress
General age: appears stated age
General Skin: warm and dry
General Habitus: normal
General Mental: alert
General Hydration: appears well hydrated
Cardiovascular Exam
Cardiovascular Exam: regular rate/rhythm, no murmur and normal peripheral pulses
Pulmonary Exam
Pulmonary Exam: other (lungs clear, pt with old tenderness obvious deformity at the site of his previous sternum, left lateral rib with tenderness no ecchymosis or crepitus)
Gastrointestinal Exam
Gastrointestinal Exam: non tender, soft and other (no LUQ tenderness )
Neurological Exam
Neurological Exam: alert and oriented x3
Musculoskeletal Exam
Musculoskeletal Exam: full ROM
Skin Exam
Skin Exam: normal color and warm/dry
Psychiatric Exam
Psychiatric Exam: normal mood/affect
Scores
Heart Score for Chest Pain Patients
STEMI patient?: Not applicable
Course
Orders/Labs/Results
Orders:
Orders
05/21/25 10:48
Electrocardiogram (*1) Urgent
Reason for Study: Chest Pain
EKG- Treatment ONCE
05/21/25 11:31
Ribs, Left 3 View W/PA Chest CR [CR Ribs-left 3 Vw W/pa Chest] Urgent
Comment:
Reason For Exam: trauma
05/21/25 14:29
CT Chest With Iv Contrast Urgent
Comment:
Reason For Exam: trauma
05/21/25 14:30
IV Insert/Care/Rem.- Treatment PRN
05/21/25 14:31
Morphine Sulfate 2 mg IV NOW STA
05/21/25 14:58
Complete Blood Count/With Diff Urgent
Comprehensive Metabolic Panel Urgent
Abnormal Lab Results
05/21/25
14:58
WBC 12.7 H 10^3/uL
(4.8-10.8)
Abs Immat Gran (auto) 0.1 H 10^3/uL
(0-0.05)
Absolute Neuts (auto) 8.9 H 10^3/uL
(1.4-6.5)
Absolute Monos (auto) 1.3 H 10^3/uL
(0.1-0.6)
Lymphocytes % 18.6 L %
(20.5-51.1)
Monocytes % 10.3 H %
(1.7-9.3)
Total Bilirubin 1.6 H mg/dl
(0.2-1.3)
Alkaline Phosphatase 165 H U/L
(38-126)
05/21/25 14:58
05/21/25 14:58
Vital Signs
Initial and Last Documented VS:
Initial Vital Signs
Temp Pulse Resp BP Pulse Ox
97.9 F 62 19 134/57 96
05/21/25 10:53 05/21/25 10:53 05/21/25 10:53 05/21/25 10:53 05/21/25 10:53
Last Documented Vital Signs
Temp Pulse Resp BP Pulse Ox
97.9 F 64 17 129/54 94
05/21/25 10:53 05/21/25 15:45 05/21/25 15:45 05/21/25 15:00 05/21/25 15:45
MDM/Problems Addressed
Differential Diagnosis Includes:
not limited to : rib fracture versus contusion
MDM/Problems Addressed:
Symptoms are likely muscular versus rib contusion however CT negative for acute injury. Patient no acute distress no shortness of breath nonhypoxic well-appearing. Well-appearing will DC with Tylenol as needed with close outpatient follow-up with
PCP.
*Radiology
Radiology exam reviewed: radiology read reviewed
*Pulse Oximetry
SaO2: 96
Oxygen Mode of Delivery: Room air
Patient hypoxic: no
*Critical Care Note
Total Time (30-74mins, 75-104mins- exclusive of procedures): Not Applicable
ED Attending Note
-
Portions of this chart may have been created with voice recognition software.� Occasional wrong word or��sound alike� substitutions may have occurred due to the inherent limitations of voice recognition software.
Discharge Plan
Departure
Patient Disposition: Home (Routine Discharge)
Date of Disposition: 05/21/25
Time of Disposition: 17:16
Patient with high blood pressure during this ER visit?: Yes
Condition: Fair
Covid-19: Not Applicable
Discharge Problem:
Contusion of rib
Instructions: Rib fracture or bruised rib - ED (DC), BLOOD PRESSURE
Prescriptions:
No Action
allopurinol 300 MG tablet
300 mg PO DAILY
amiodarone [Pacerone] 200 MG tablet
200 mg PO DAILY
albuterol sulfate 1 PUFF HFA aerosol inhaler
2 puff inhalation R [id number] PRN (Reason: sob)
Fasenra 30 MG/ML syringe
30 mg SC .[id number]
amlodipine 10 MG tablet
10 mg PO DAILY
gabapentin 300 MG capsule
300 mg PO BID
montelukast 10 MG tablet
10 mg PO QPM
rosuvastatin [Crestor] 40 MG tablet
40 mg PO HS
esomeprazole magnesium [address] for susp in packet
40 mg PO DAILY
furosemide 20 MG tablet
20 mg PO DAILY
loratadine 10 MG tablet
10 mg PO DAILY
ezetimibe 10 MG tablet
10 mg PO HS
multivitamin with folic acid [Tab-A-L[place]] 1 TABLET tablet
1 tab PO DAILY
prednisone 10 mg Tablet
10 mg PO DAILY
terazosin 2 mg Capsule
2 mg PO HS
cefdinir 300 mg Capsule
300 mg PO Q12H
fluticasone propionate 50 mcg/actuation [place],Suspension
1 spray INTRANASAL BID
Fish Oil 500 mg Capsule
500 mg PO HS
azelastine-fluticasone 137-50 mcg/spray [place],Non-Aerosol
1 spray INTRANASAL BID
potassium chloride [K-Tab] 20 mEq Tablet Extended Release
20 meq PO DAILY
Probiotic
1 cap PO DAILY
cranberry 300 mg capsule
1 cap PO HS
acetaminophen [Tylenol Arthritis] 650 mg Tablet Extended Release
1,300 mg PO Q12H
fluticasone propion-salmeterol [Advair Diskus] 500-50 mcg/dose Blister With Device
2 inh INHALATION BID
Referrals:
Stepan Dunbar DO [Family Provider, Family Practice]
Activity Restrictions/Additional Instructions:
As discussed your CAT scan was negative for acute rib fracture. Please continue to take Tylenol as needed every 6 hours. Please do deep breathing exercises every hour.
follow-up with your family doctor in the next 2 days and return for any worsening of symptoms.
Interventions
Interventions:
*General Assessment Last Done: 05/21/25 10:56
*Neglect/Abuse Screening Last Done: 05/21/25 10:56
*ED COVID-19 Vaccine History Last Done: 05/21/25 10:56
*ED Influenza Vaccine History Last Done: 05/21/25 10:56
[facility] Risk Assessment Tool Last Done: 05/21/25 12:00
*Risk Screen - Suicide (C-SSRS) Last Done: 05/21/25 10:56
ED- Cardiac Assessment Last Done: 05/21/25 12:00
Discharge Date and Time
Print Language: INDONESIAN
[2025-05-21 15:00] VITALS: BP 129/54
[2025-05-21 15:11] LABS: Hematocrit 42.7 % (39.0-52.0); Hemoglobin 14.4 g/dL (13.0-18.0); Mean Corp Hgb Conc. 33.7 g/dL (33.0-37.0); Mean Corpuscular Volume 90.1 fL (80.0-94.0); Nucleated Red Blood Cells % 0 % (-); Platelet Count 237 10^3/uL (130-400); Red Cell Dist. Width 14.4 % (11.5-14.5)
[2025-05-21] MEDS: MORPHINE SULFATE 2 MG IV (15:11)
[2025-05-21 15:24] LABS: ALT (SGPT) 23 U/L (0-50); AST (SGOT) 27 U/L (17-59); Albumin 4.2 g/dl (3.5-5.0); Alkaline Phosphatase 165 U/L (38-126); Blood Urea Nitrogen 17 mg/dl (9-20); Calcium 9.4 mg/dl (8.4-10.2); Carbon Dioxide 28 mmol/L (22-30); Chloride 102 mmol/L (98-107); Glucose 85 mg/dl (70-99); Potassium 3.5 mmol/L (3.5-5.1); Sodium 136 mmol/L (135-145); Total Protein 6.6 g/dl (6.3-8.2); eGFR > 60.00
[2025-05-21 17:22] VITALS: BP 128/78
== END 2025-05-21 17:35 | disposition home or self-care (01) ==
LOC: EMR 10:47
PROVIDERS: Nurse Practitioner; EMERGENCY PHYSICIAN Emergency Medicine; FAMILY PHYSICIAN Family Medicine
DX: S20.212A Contusion of left front wall of thorax, initial encounter (principal); I10 Essential (primary) hypertension; X50.0XXA Overexertion from strenuous movement or load, initial encounter; E78.00 Pure hypercholesterolemia, unspecified; Z95.1 Presence of aortocoronary bypass graft
CPT/HCPCS: 99285; 96374; 71101; 71260; 80053; 85025; 93005; Q9967